=== PATIENT | male | born 1950 | race Caucasian/White ===

== ENCOUNTER 2023-10-01 12:34 | Outpatient (CLI) | payer OTHER | END 2023-10-01 23:59 | disposition home or self-care (01) | LOC: CARD DIAG 12:34 | PROVIDERS: ATTEND Chiropractor | DX: I34.81 Nonrheumatic mitral (valve) annulus calcification (principal); I25.10 Atherosclerotic heart disease of native coronary artery without angina pectoris | CPT/HCPCS: 93306 ==